=== PATIENT | female | born 1980 | race Caucasian/White ===

== ENCOUNTER 2021-03-07 10:24 | Outpatient (CLI) | payer BC | END 2021-03-07 10:25 | disposition home or self-care (01) | LOC: CSHMAMMO 10:24 | PROVIDERS: ATTEND Obstetrics & Gynecology | DX: Z12.31 Encounter for screening mammogram for malignant neoplasm of breast (principal) | CPT/HCPCS: 77063; 77067 ==

== ENCOUNTER 2022-02-25 14:41 | Outpatient (CLI) | payer BC | END 2022-02-25 14:42 | disposition home or self-care (01) | LOC: CSHULT 14:41 | PROVIDERS: ATTEND Urology | DX: R39.15 Urgency of urination (principal); R35.0 Frequency of micturition; R19.00 Intra-abdominal and pelvic swelling, mass and lump, unspecified site | CPT/HCPCS: 76770 ==

== ENCOUNTER 2022-03-28 14:34 | Outpatient (CLI) | payer BC | END 2022-03-28 14:35 | disposition home or self-care (01) | LOC: CSHMAMMO 14:34 | PROVIDERS: ATTEND Obstetrics & Gynecology | DX: Z12.31 Encounter for screening mammogram for malignant neoplasm of breast (principal) | CPT/HCPCS: 77063; 77067 ==